=== PATIENT | female | born 1975 | race African-American/Black ===

== ENCOUNTER 2017-07-09 17:23 | Emergency (ER) | payer OTHER ==
[~2017-07-09] VITALS: Ht 177.8 cm; Wt 125.6 kg
[~2017-07-09 17:23] MED LIST: AMBIEN CR12.5 MG PO; AMITIZA24 MICROGR; AMITIZA8 MICROGRA; ANAPROX DS550 M1 PO; ATIVAN0.5 MG PO; AUGMENTIN875 MG PO; BENTYL20 MG PO; CIPRO500 MG PO; DEPO-PROVER150 MG/ML IM; DIAZEPAM5 MG PO; DICYCLOMINE HCL20 MG; FLAGYL500 MG PO; LEXAPRO10 MG PO; LUNESTA1 MG PO; MOTRIN600 MG PO; OXYCODONE HCL E10 MG PO; PERCOCET 5/31 TABLET PO; PROMETHAZINE HC50 M1 PO; RANITIDINE HCL150 MG PO; TORADOL10 MG PO; ULTRAM50 MG PO; ZOFRAN4 MG PO
[2017-07-09 18:03] LABS: HEMATOCRIT 48.3 % (36.0-46.0); MCH 28.8 PG (29.0-34.0); MCHC 34.2 G/DL (30.0-36.0); MCV 84.4 FL (83-99); MEAN PLAT.VOLUME 9.4 uM^3 (9.5-12.4); PLATELET COUNT 502 K/uL (156-360); RBC DIS.WIDTH-CV 12.7 % (11.8-14.6); RBC DIS.WIDTH-SD 38.7 % (39-53); RED BLOOD COUNT 5.72 M/uL (3.80-5.20); WHITE BLOOD COUNT 11.1 K/uL (4.1-10.2)
[2017-07-09 18:11] LABS: CHLORIDE 110 mEq/L (99-109); POTASSIUM 3.2 mEq/L (3.7-5.4); SODIUM 142 mEq/L (136-147)
[2017-07-09 18:12] LABS: GLUCOSE 94 mg/dL (70-99)
[2017-07-09 18:14] LABS: ANION GAP 9 MEQ/L (2-14)
[2017-07-09 18:16] LABS: GFR ESTIMATE (CALCULATED) > 59 mL/min/
[2017-07-09 18:17] LABS: UREA NITROGEN (BUN) 9 mg/dL (9-23)
[2017-07-09 21:56] VITALS: BP 126/92
== END 2017-07-09 21:58 | disposition home or self-care (01) ==
LOC: EME 17:23
DX: R51 Headache (principal); R42 Dizziness and giddiness; I10 Essential (primary) hypertension; K21.9 Gastro-esophageal reflux disease without esophagitis; J45.909 Unspecified asthma, uncomplicated; F32.9 Major depressive disorder, single episode, unspecified; F41.9 Anxiety disorder, unspecified; Z91.040 Latex allergy status
CPT/HCPCS: 70450; 71020; 80048; 81003; 85027; 93005; 99281; 99284

== ENCOUNTER → 2017-07-31 | Outpatient (CLI) | payer OTHER ==
[2017-07-31 17:32] LABS: APPEARANCE CLEAR/COLORLESS; RED CELL AREA COUNTED 18; RED CELL COUNT 7 /MM^3 (0-1); RED CELL DILUTION 1; WBC AREA COUNTED 18; WBC DILUTION 1; WHITE CELL COUNT 7 /MM^3 (0-5); WHITE CELL RAW COUNT 12
[2017-07-31 18:26] LABS: CSF EOSINOPHILS 0 % (0-25); MONO RAW COUNT 14; MONONUCLEAR WBC'S 100 % (50-90); POLYNUCLEAR WBC'S 0 % (0-3)
== END | disposition home or self-care (01) ==
LOC: RAD 14:40
PROVIDERS: Psychiatry & Neurology Clinical Neurophysiology
PROC: 009U3ZZ Drainage of Spinal Canal, Percutaneous Approach (ICD-10-PCS; principal; 2017-07-31)
DX: G37.9 Demyelinating disease of central nervous system, unspecified (principal); B99.9 Unspecified infectious disease; G93.2 Benign intracranial hypertension
CPT/HCPCS: 62270; 77003; 82945; 84157; 86617 90; 86618 90; 87070; 87205; 89051